=== PATIENT | female | born 1945 | race Caucasian/White ===

== ENCOUNTER 2019-12-12 10:08 | Observation (INO) | payer OTHER, MEDICARE ==
[~2019-12-12] VITALS: Ht 170.2 cm; Wt 88.6 kg
[2019-12-12 10:38] LABS: BASOPHILS ABSOLUTE AUTO 0.02 K/mm3 (0.00-0.23); BASOPHILS PERCENT AUTO 0 % (0-2); EOSINOPHILS ABSOLUTE AUTO 0.05 K/mm3 (0.00-0.68); EOSINOPHILS PERCENT AUTO 1 % (0-6); Hematocrit 46.3 % (33.0-51.0); IMMATURE GRAN ABSOLUTE AUTO 0.01 K/mm3 (0.00-0.10); IMMATURE GRAN PERCENT AUTO 0 % (0-1); LYMPHOCYTES ABSOLUTE AUTO 1.74 K/mm3 (0.84-5.20); LYMPHOCYTES PERCENT AUTO 25 % (21-46); MONOCYTES ABSOLUTE AUTO 0.75 K/mm3 (0.16-1.47); MONOCYTES PERCENT AUTO 11 % (4-13); Mean Corpuscular HGB 30.5 pg (26.0-34.0); Mean Corpuscular HGB Conc 32.4 g/dL (31.5-36.5); Mean Corpuscular Volume 94 fL (80-100); Mean Platelet Volume 9.9 fL (9.1-12.4); NEUTROPHILS ABSOLUTE AUTO 4.32 K/mm3 (1.96-9.15); NEUTROPHILS PERCENT AUTO 63 % (41-73); Platelet Count 147 K/mm3 (150-400); RDW Coefficient Variation 13.2 % (11.7-14.2); RDW Standard Deviation 46.1 fL (35.1-46.3); Red Blood Cell Count 4.91 M/mm3 (3.80-5.20); White Blood Cell Count 6.89 K/mm3 (4.00-11.30)
[2019-12-12 10:59] LABS: Alanine Aminotransfer (ALT/SGP 17 U/L (12-78); Albumin/Globulin Ratio 0.7 (0.8-1.8); Alk Phos 81 U/L (50-136); Anion Gap 7 mmol/L (6-16); Aspartate Aminotrans (AST/SGOT 14 U/L (12-37); Bilirubin, Total 0.6 mg/dL (0.1-1.0); Blood Urea Nitrogen 13 mg/dL (8-24); Bun/Creatinine Ratio 13.3 (12.0-20.0); CO2, Blood 27 mmol/L (21-32); Calcium, Blood 8.9 mg/dL (8.5-10.1); Chloride, Blood 108 mmol/L (98-108); Creatinine, Blood 0.98 mg/dL (0.40-1.00); Globulin, Blood 4.3 g/dL (2.2-4.0); Glomerular Filtration Rate 59 (60-); Glucose, Blood 102 mg/dL (70-99); Potassium, Blood 3.6 mmol/L (3.5-5.5); Sodium, Blood 142 mmol/L (136-145); Total Protein, Blood 7.3 g/dL (6.4-8.2)
[2019-12-12 11:00] LABS: Troponin I <0.015 ng/mL (0.000-0.040)
[2019-12-12] MEDS ORDERED: BUPROPION HCL200 M1 PO (18:40)
[2019-12-12] MEDS ORDERED: PANTOPRAZOLE SO40 M2 PO (18:41)
[2019-12-12] MEDS ORDERED: SERT100 PO (18:41)
[2019-12-12] MEDS ORDERED: ETOD400 PO (18:42)
[2019-12-12] MEDS ORDERED: PRAZ2 PO (18:42)
[2019-12-12] MEDS ORDERED: Aspir 8181 MG PO (18:43)
[2019-12-12] MEDS ORDERED: ALBU90OI INH (18:48)
[2019-12-12] MEDS ORDERED: ASMANEX220 MC8 INH (18:49)
[2019-12-13 05:25] LABS: BASOPHILS ABSOLUTE AUTO 0.03 K/mm3 (0.00-0.23); BASOPHILS PERCENT AUTO 1 % (0-2); EOSINOPHILS ABSOLUTE AUTO 0.06 K/mm3 (0.00-0.68); EOSINOPHILS PERCENT AUTO 1 % (0-6); Hematocrit 41.3 % (33.0-51.0); Hemoglobin 13.3 g/dL (11.5-16.0); IMMATURE GRAN ABSOLUTE AUTO 0.02 K/mm3 (0.00-0.10); IMMATURE GRAN PERCENT AUTO 0 % (0-1); LYMPHOCYTES PERCENT AUTO 28 % (21-46); MONOCYTES ABSOLUTE AUTO 0.67 K/mm3 (0.16-1.47); MONOCYTES PERCENT AUTO 11 % (4-13); Mean Corpuscular HGB 30.6 pg (26.0-34.0); Mean Corpuscular HGB Conc 32.2 g/dL (31.5-36.5); Mean Corpuscular Volume 95 fL (80-100); Mean Platelet Volume 10.6 fL (9.1-12.4); NEUTROPHILS ABSOLUTE AUTO 3.54 K/mm3 (1.96-9.15); NEUTROPHILS PERCENT AUTO 59 % (41-73); Platelet Count 131 K/mm3 (150-400); RDW Coefficient Variation 13.2 % (11.7-14.2); RDW Standard Deviation 46.1 fL (35.1-46.3); Red Blood Cell Count 4.35 M/mm3 (3.80-5.20); White Blood Cell Count 6.02 K/mm3 (4.00-11.30)
--- NOTE | 2019-12-13 05:53 | NUR ---
SHIFT SUMMARY: VSS. AFEB. 02 SAT 93-94% ON RA. REPORTS SOB W/EXERTION. SHALLOW RESPS. PAIN IN R CHEST/BACK ONGOING. PT STATES PAIN IS BARELY PERCEPTABLE AT REST, INCREASES W/MOVEMENT. NO COUGHING. STATES SCHEDULED TORADOL EFFECTIVELY MANAGES PAIN AT THIS TIME. NO ACUTE CHANGES OVERNIGHT.
[2019-12-13 05:56] LABS: Albumin, Blood 2.7 g/dL (3.4-5.0); Albumin/Globulin Ratio 0.7 (0.8-1.8); Bilirubin, Total 0.8 mg/dL (0.1-1.0); Bun/Creatinine Ratio 16.7 (12.0-20.0); Calcium, Blood 8.8 mg/dL (8.5-10.1); Creatinine, Blood 1.02 mg/dL (0.40-1.00); Globulin, Blood 3.9 g/dL (2.2-4.0); Magnesium, Blood 2.4 mg/dL (1.6-2.4); Potassium, Blood 3.3 mmol/L (3.5-5.5); Thyroid Stimulating Hormone 1.84 uIU/mL (0.360-4.800); Total Protein, Blood 6.6 g/dL (6.4-8.2)
[2019-12-13] MEDS ORDERED: Norco 5-325 Ta1 EACH PO (14:57)
[2019-12-13] MEDS ORDERED: XARELTO15 MG PO (15:00)
--- NOTE | 2019-12-13 16:02 | NUR ---
PATIENT D/C'D TO HOME WITH . RX MEDICATIONS S[facility]. PATIENT GIVEN FIRST DOSE OF XARELTO BEFORE DC AND MEDICATED WITH A NORCO FOR PAIN. DC INSTRUCTIONS AND EDUCATION DISCUSSED WITH PATIENT AND COPY PROVIDED. HARD SCRIPT FOR NORCO GIVEN TO PATIENT. PATIENT DENIES ANY FURTHER QUESTIONS OR CONCERNS.
== END 2019-12-13 15:22 | disposition home or self-care (01) ==
LOC: ER 10:08 → MEDS 10:09
PROVIDERS: Physician Assistant; ADMIT Internal Medicine
DX: R07.81 Pleurodynia (principal); D68.2 Hereditary deficiency of other clotting factors; Z86.711 Personal history of pulmonary embolism
CPT/HCPCS: 36415; 71046; 78580; 80053; 83735; 84443; 84484; 85025; 85379; 85651; 93005; 93010; 93970; 96372; 96374; 96376; 99285-25; A9270-GY; A9540; G0378; J1650; J1885

== ENCOUNTER 2022-11-24 18:18 | Emergency (ER) | payer OTHER ==
[~2022-11-24] VITALS: Ht 152.4 cm; Wt 92.1 kg
[~2022-11-24 18:18] MED LIST: ALBU90OI INH; ASMANEX220 MC8 INH; Aspir 8181 MG PO; BUPROPION HCL200 M1 PO; ETOD400 PO; Norco 5-325 Ta1 EACH PO; PANTOPRAZOLE SO40 M2 PO; PRAZ2 PO; SERT100 PO; XARELTO15 MG PO
[2022-11-24 18:46] VITALS: BP 167/81
== END 2022-11-24 20:25 | disposition home or self-care (01) ==
LOC: ER 18:18
DX: S61.217A Laceration without foreign body of left little finger without damage to nail, initial encounter (principal); Z23 Encounter for immunization; W26.0XXA Contact with knife, initial encounter; Y93.89 Activity, other specified; Z91.030 Bee allergy status; Z88.8 Allergy status to other drugs, medicaments and biological substances; Z91.048 Other nonmedicinal substance allergy status; Z79.82 Long term (current) use of aspirin; Z79.51 Long term (current) use of inhaled steroids; Z79.1 Long term (current) use of non-steroidal anti-inflammatories (NSAID); Z79.01 Long term (current) use of anticoagulants
CPT/HCPCS: 12001; 90471; 90714; 99282-25

== ENCOUNTER 2024-01-17 10:05 | Inpatient (IN) | payer OTHER ==
[~2024-01-17] VITALS: Ht 152.4 cm; Wt 90.1 kg
[2024-01-17] VITALS (9 sets, daily range): BP systolic 128–141; BP diastolic 81–97
[~2024-01-17 10:05] MED LIST changes: +TIZA4 PO
[2024-01-17] MEDS ORDERED: XARELTO20 MG PO (10:35)
[2024-01-17] MEDS ORDERED: ALEN70 PO (10:37)
[2024-01-17] MEDS ORDERED: GABA100 PO (10:38)
[2024-01-17] MEDS ORDERED: FAMO20 PO (10:38)
[2024-01-17 10:39] LABS: BASOPHILS ABSOLUTE AUTO 0.03 K/mm3 (0.00-0.23); BASOPHILS PERCENT AUTO 0 % (0-2); EOSINOPHILS ABSOLUTE AUTO 0.03 K/mm3 (0.00-0.68); EOSINOPHILS PERCENT AUTO 0 % (0-6); Hematocrit 39.8 % (33.0-51.0); Hemoglobin 13.5 g/dL (11.5-16.0); IMMATURE GRAN ABSOLUTE AUTO 0.03 K/mm3 (0.00-0.10); IMMATURE GRAN PERCENT AUTO 0 % (0-1); LYMPHOCYTES PERCENT AUTO 28 % (21-46); MONOCYTES ABSOLUTE AUTO 0.56 K/mm3 (0.16-1.47); MONOCYTES PERCENT AUTO 7 % (4-13); Mean Corpuscular HGB 31.4 pg (26.0-34.0); Mean Corpuscular HGB Conc 33.9 g/dL (31.5-36.5); Mean Corpuscular Volume 93 fL (80-100); Mean Platelet Volume 10.5 fL (9.1-12.4); NEUTROPHILS PERCENT AUTO 63 % (41-73); Platelet Count 169 K/mm3 (150-400); RDW Coefficient Variation 12.6 % (11.7-14.2); RDW Standard Deviation 42.7 fL (35.1-46.3); White Blood Cell Count 7.75 K/mm3 (4.00-11.30)
[2024-01-17 11:04] LABS: Albumin, Blood 3.3 g/dL (3.4-5.0); Bilirubin, Total 0.5 mg/dL (0.1-1.0); Bun/Creatinine Ratio 19.3 (12.0-20.0); Calcium, Blood 8.8 mg/dL (8.5-10.1); Creatinine, Blood 0.88 mg/dL (0.40-1.00); Globulin, Blood 3.4 g/dL (2.2-4.0); Potassium, Blood 3.8 mmol/L (3.5-5.5); Total Protein, Blood 6.7 g/dL (6.4-8.2)
[2024-01-17] MEDS ORDERED: Nitroglycerin 2 MG/20 ML BTL ONE (11:35)
[2024-01-17] MEDS ORDERED: NiCARdipine HCL 1,000 MCG/5 ML SYR ONE (11:35)
[2024-01-17] MEDS ORDERED: Heparin Sodium 5000 Units/ML 1ML MDV IV ONE (11:35)
[2024-01-17] MEDS ORDERED: NS 250 ML IV ONE ×2 (11:36→12:10)
[2024-01-17] MEDS ORDERED: NS 2,000 ML IV ONE (11:36)
[2024-01-17] MEDS ORDERED: Heparin Sodium 1000 Units/ML 10ML MDV ONE (11:37)
[2024-01-17] MEDS ORDERED: FentaNYL Citrate 50 MCG/ML 2 ML Injection ONE (11:41)
[2024-01-17] MEDS ORDERED: Midazolam HCl 1MG / ML 2ML Vial ONE (11:42)
[2024-01-17] MEDS ORDERED: Phenylephrine HCl 100 MCG/ML-NS 10MLSYR (1MG/10ML) ONE (11:43)
[2024-01-17] MEDS ORDERED: Tirofiban HCL Monohydrate 3.75 MG/15 ML Vial ONE (11:43)
[2024-01-17] MEDS ORDERED: Atropine Sulfate 0.1 MG/ML 10ML SYR ONE (11:43)
[2024-01-17] MEDS ORDERED: MethylPREDNISolone Sod Succ 125 MG Vial IV ONE (11:45)
[2024-01-17] MEDS ORDERED: DiphenhydrAMINE HCl 50 MG/ML 1ML Vial IV ONE (11:45)
[2024-01-17] MEDS ORDERED: Famotidine 10 MG/ML 2ML Vial IV ONE (11:45)
[2024-01-17] MEDS ORDERED: Clopidogrel Bisulfate 300 MG Cap ONE (11:47)
[2024-01-17] MEDS ORDERED: EpiNEPhrine 1 MG/1 ML 1ML Vial ONE (12:08)
[2024-01-17] MEDS ORDERED: NS 1,000 ML IV SCH (13:15)
[2024-01-17] MEDS ORDERED: Acetaminophen 325 MG TABLET PO PRN ×2 (13:20→14:55)
[2024-01-17] MEDS ORDERED: Metoprolol Succinate 25 MG TABCR PO SCH (13:20)
[2024-01-17] MEDS ORDERED: Empagliflozin 10 MG TAB PO SCH (13:20)
[2024-01-17] MEDS ORDERED: Losartan Potassium 50 MG Tab PO SCH (13:25)
[2024-01-17] MEDS ORDERED: Vitamin D1000 UNI1 PO (13:43)
[2024-01-17] MEDS ORDERED: FLU VACC TS2024-25(6MOS UP)/PF 45 MCG/0.5 ML SYRINGE IM SCH (14:55)
[2024-01-17] MEDS ORDERED: Heparin Sodium,Porcine 5,000 UNIT/0.5 ML SDV SC ONE (16:31)
[2024-01-17] MEDS ORDERED: Albuterol 2.5 MG/3 ML VIAL INH PRN (16:35)
[2024-01-17] MEDS ORDERED: Alendronate Sodium 70 MG Tablet PO SCH (16:50)
--- NOTE | 2024-01-17 17:03 | NUR ---
PCU ADMIT PT REPORTS ORIGINALLY GOING TO [facility] W/ CHEST PAIN THEN BEING SENT TO THE ER & THEN THE [facility]. PT BROUGHT TO [facility]U-[id number] FROM THE [facility] @ APPROX 1300. PT A&O X4. VSS. MONITOR SHOWING NSR. SPO2 88-91% ON RA UPON ARRIVAL TO UNIT. 2L NC APPLIED. PT THEN SOB W/ GETTING UP TO BSC, REQUIRING INCREASE TO 4L NC FOR SPO2 > 92% & PT W/ AUDIBLE WHEEZING. MD FERRELL W/ ORDERS FOR PT HOME MEDICATIONS INCLUDING HOME ALBUTEROL INHALER, SEE ORDER. RT TO RM FOR BREATHING TREATMENT. PT W/ R RADIAL ACCESS SITE. TRB IN PLACE, NOW DEFLATED, WILL REMOVE AFTER 1HR SINCE LAST AIR REMOVAL. ACCESS SITE W/ NOTED BRUISING, NO BLEEDING, NO HEMATOMA. ARM BOARD IN PLACE. NS GTT INFUSING PER EMAR.
[2024-01-17] MEDS ORDERED: Albuterol HFA200 ACT/6.7 GM INH INH PRN (17:15)
[2024-01-17] MEDS ORDERED: Prazosin HCl2 MG PO (20:29)
[2024-01-17] MEDS ORDERED: Prazosin HCl 1 MG Cap PO SCH (21:00)
[2024-01-17] MEDS ORDERED: Atorvastatin 10 MG Tab PO SCH (21:00)
[2024-01-17] MEDS ORDERED: Gabapentin 100 MG Cap PO SCH (21:00)
[2024-01-18 00:23] VITALS: BP 110/72
[2024-01-18 02:57] VITALS: BP 127/81
[2024-01-18 03:38] LABS: BASOPHILS ABSOLUTE AUTO 0.01 K/mm3 (0.00-0.23); BASOPHILS PERCENT AUTO 0 % (0-2); EOSINOPHILS PERCENT AUTO 0 % (0-6); Hematocrit 40.2 % (33.0-51.0); Hemoglobin 13.8 g/dL (11.5-16.0); IMMATURE GRAN ABSOLUTE AUTO 0.03 K/mm3 (0.00-0.10); IMMATURE GRAN PERCENT AUTO 0 % (0-1); LYMPHOCYTES ABSOLUTE AUTO 0.86 K/mm3 (0.84-5.20); LYMPHOCYTES PERCENT AUTO 11 % (21-46); MONOCYTES ABSOLUTE AUTO 0.16 K/mm3 (0.16-1.47); MONOCYTES PERCENT AUTO 2 % (4-13); Mean Corpuscular HGB 31.7 pg (26.0-34.0); Mean Corpuscular HGB Conc 34.3 g/dL (31.5-36.5); Mean Corpuscular Volume 92 fL (80-100); Mean Platelet Volume 10.7 fL (9.1-12.4); NEUTROPHILS PERCENT AUTO 87 % (41-73); Platelet Count 159 K/mm3 (150-400); RDW Coefficient Variation 12.7 % (11.7-14.2); RDW Standard Deviation 43.1 fL (35.1-46.3); Red Blood Cell Count 4.35 M/mm3 (3.80-5.20); White Blood Cell Count 7.86 K/mm3 (4.00-11.30)
[2024-01-18 04:00] LABS: Anion Gap 10 mmol/L (3-11); Blood Urea Nitrogen 19 mg/dL (8-24); Bun/Creatinine Ratio 20.5 (12.0-20.0); CHOL/HDL RATIO 2.9; CO2, Blood 22 mmol/L (21-32); Calcium, Blood 8.8 mg/dL (8.5-10.1); Chloride, Blood 112 mmol/L (98-108); Cholesterol 227 mg/dL (50-200); Creatinine, Blood 0.93 mg/dL (0.40-1.00); Glomerular Filtration Rate 64 (60-); Glucose, Blood 154 mg/dL (70-99); HDL Cholesterol 78 mg/dL (>39); LDL/HDL RATIO 1.7; Low Density Lipoprotein Chol 135 mg/dL (0-110); Potassium, Blood 3.7 mmol/L (3.5-5.5); Sodium, Blood 140 mmol/L (136-145); Triglycerides 69 mg/dL (30-160); Very Low Density Lipoprot Chol 13 mg/dL (6-32)
--- NOTE | 2024-01-18 06:01 | NUR ---
SHIFT SUMMARY PATIENT ALERT, ORIENTED x4. ABLE TO MAKE NEEDS KNOWN TO STAFF. BP STABLE. PATIENT TITRATED FROM 3L NC TO RA, SPO2 >90%. DENIED CHEST PAIN DURING THE NIGHT. RIGHT RADIAL SITE RECOVERED, NO HEMATOMA, SWELLING OR OOZING NOTED. ARM BOARD IN PLACE. PATIENT AMBULATING INTO BATHROOM MINIMAL ASSIST, ADEQUATE OUTPUT. NO OTHER CHANGES DURING THE NIGHT, WILL REPORT TO DAY SHIFT RN.
[2024-01-18 07:32] VITALS: BP 120/75
[2024-01-18] MEDS ORDERED: Cholecalciferol 1000 Unit Tablet (=25MCG) PO SCH (09:00)
[2024-01-18] MEDS ORDERED: Famotidine 20 MG Tab PO SCH (09:00)
[2024-01-18] MEDS ORDERED: Rivaroxaban 10 MG Tab PO SCH (09:00)
[2024-01-18 12:01] VITALS: BP 112/74
[2024-01-18] MEDS ORDERED: ATOR10 PO (12:09)
[2024-01-18] MEDS ORDERED: JARDIANCE10 MG PO (12:10)
[2024-01-18] MEDS ORDERED: LOSA25 PO (12:10)
[2024-01-18] MEDS ORDERED: METO25ER PO (12:11)
--- NOTE | 2024-01-18 13:35 | NUR ---
PT DISCHARGED TO HOME WITH . BELONGINGS WERE COLLECTED AND SENT HOME WITH PT. THIS RN WENT OVER DISCHARGE INSTRUCTIONS AND MEDS WITH PT AND ADDRESSED ANY QUESTIONS OR CONCERNS. PT DENIES ANY FUTHER QUESTIONS OR CONCERNS.
== END 2024-01-18 13:59 | disposition home or self-care (01) | DRG 287 ==
LOC: ER 10:05 → ICUE 11:38 → PCU 11:38
PROVIDERS: Internal Medicine Cardiovascular Disease; Student in an Organized Health Care Education/Training Program; ADMIT Internal Medicine
PROC: 4A023N7 Measurement of Cardiac Sampling and Pressure, Left Heart, Percutaneous Approach (ICD-10-PCS; principal; 2024-01-17)
PROC: B2111ZZ Fluoroscopy of Multiple Coronary Arteries using Low Osmolar Contrast (ICD-10-PCS; 2024-01-17)
PROC: B2151ZZ Fluoroscopy of Left Heart using Low Osmolar Contrast (ICD-10-PCS; 2024-01-17)
DX: I51.81 Takotsubo syndrome (principal); D68.51 Activated protein C resistance; D64.9 Anemia, unspecified; G89.29 Other chronic pain; M54.9 Dorsalgia, unspecified; K21.9 Gastro-esophageal reflux disease without esophagitis; M06.9 Rheumatoid arthritis, unspecified; E78.2 Mixed hyperlipidemia; R09.02 Hypoxemia; Z96.652 Presence of left artificial knee joint; Z86.711 Personal history of pulmonary embolism; Z91.038 Other insect allergy status; Z88.8 Allergy status to other drugs, medicaments and biological substances; Z79.01 Long term (current) use of anticoagulants; Z79.899 Other long term (current) drug therapy
CPT/HCPCS: 36415; 71046; 76937; 80048; 80053; 80061; 84484; 85025; 85347; 93005; 93010; 93458; 94640; 94664; 94762; 96374; 96375; 99152; 99153; 99285-25; A9270; C1769; C1887; C1894; C8929; J0171; J0461; J1200; J1644; J2250; J2371; J2919; J3010; J3246; J7030; J7050; Q9957; Q9967

== ENCOUNTER 2024-02-22 12:06 | Emergency (ER) | payer OTHER ==
[~2024-02-22] VITALS: Ht 152.4 cm; Wt 89.8 kg
[~2024-02-22 12:06] MED LIST changes: +ALEN70 PO; +ATOR10 PO; +FAMO20 PO; +GABA100 PO; +JARDIANCE10 MG PO; +LOSA25 PO; +METO25ER PO; +Prazosin HCl2 MG PO; +Vitamin D1000 UNI1 PO; +XARELTO20 MG PO
[2024-02-22 12:59] LABS: BASOPHILS ABSOLUTE AUTO 0.04 K/mm3 (0.00-0.23); BASOPHILS PERCENT AUTO 1 % (0-2); EOSINOPHILS ABSOLUTE AUTO 0.07 K/mm3 (0.00-0.68); EOSINOPHILS PERCENT AUTO 2 % (0-6); Hematocrit 44.2 % (33.0-51.0); Hemoglobin 14.8 g/dL (11.5-16.0); IMMATURE GRAN PERCENT AUTO 0 % (0-1); LYMPHOCYTES ABSOLUTE AUTO 1.72 K/mm3 (0.84-5.20); LYMPHOCYTES PERCENT AUTO 38 % (21-46); MONOCYTES ABSOLUTE AUTO 0.32 K/mm3 (0.16-1.47); MONOCYTES PERCENT AUTO 7 % (4-13); Mean Corpuscular HGB 31.1 pg (26.0-34.0); Mean Corpuscular HGB Conc 33.5 g/dL (31.5-36.5); Mean Corpuscular Volume 93 fL (80-100); Mean Platelet Volume 10.8 fL (9.1-12.4); NEUTROPHILS ABSOLUTE AUTO 2.33 K/mm3 (1.96-9.15); NEUTROPHILS PERCENT AUTO 52 % (41-73); Platelet Count 151 K/mm3 (150-400); RDW Coefficient Variation 12.2 % (11.7-14.2); RDW Standard Deviation 42.2 fL (35.1-46.3); Red Blood Cell Count 4.76 M/mm3 (3.80-5.20); White Blood Cell Count 4.48 K/mm3 (4.00-11.30)
[2024-02-22 13:33] LABS: Albumin, Blood 3.5 g/dL (3.4-5.0); Bilirubin, Total 0.5 mg/dL (0.1-1.0); Bun/Creatinine Ratio 17.5 (12.0-20.0); Calcium, Blood 9.2 mg/dL (8.5-10.1); Creatinine, Blood 0.91 mg/dL (0.40-1.00); Globulin, Blood 3.4 g/dL (2.2-4.0); Potassium, Blood 3.7 mmol/L (3.5-5.5); Total Protein, Blood 6.9 g/dL (6.4-8.2)
[2024-02-22] MEDS ORDERED: DiphenhydrAMINE HCl 50 MG/ML 1ML Vial IV ONE (17:45)
[2024-02-22] MEDS ORDERED: Famotidine 10 MG/ML 2ML Vial IV ONE (17:45)
[2024-02-22] MEDS ORDERED: MethylPREDNISolone Sod Succ 125 MG Vial IV ONE (17:45)
[2024-02-22 19:15] VITALS: BP 152/66
[2024-02-22] MEDS ORDERED: JARDIANCE10 MG PO (19:33)
[2024-02-22] MEDS ORDERED: LOSA50 PO (19:33)
[2024-02-22] MEDS ORDERED: XARELTO20 MG PO (19:33)
[2024-02-22] MEDS ORDERED: METO25ER PO (19:33)
== END 2024-02-22 19:53 | disposition home or self-care (01) ==
LOC: ER 12:06
PROVIDERS: Physician Assistant
DX: R07.89 Other chest pain (principal); K44.9 Diaphragmatic hernia without obstruction or gangrene; R42 Dizziness and giddiness; F43.10 Post-traumatic stress disorder, unspecified; K21.9 Gastro-esophageal reflux disease without esophagitis; E78.5 Hyperlipidemia, unspecified; M19.90 Unspecified osteoarthritis, unspecified site; Z79.899 Other long term (current) drug therapy; Z91.041 Radiographic dye allergy status; Z91.030 Bee allergy status
CPT/HCPCS: 71046; 71260; 80053; 84484; 85025; 93005; 93010; 96374-59; 96375-59; 99284-25; J1200; J2919; Q9967

== ENCOUNTER 2024-09-01 09:56 | Day surgery (SDC) | payer OTHER ==
[~2024-09-01] VITALS: Ht 154.5 cm; Wt 86.2 kg
[~2024-09-01 09:56] MED LIST changes: -ATOR10 PO; +ATOR20 PO; +CALCIUM 500 MG1 EAC7 PO; +LOSA50 PO; +Lactated Ringer's 1,000 ML IV SCH; +Methocarbamol500 MG PO; +PANT40 PO; +VITAMIN E90 MG PO
[2024-09-01] MEDS ORDERED: propofoL 40 ML IV ONE (10:21)
[2024-09-01 11:13] VITALS: BP 176/82
--- NOTE | 2024-09-01 11:16 | NUR ---
History, Chart, Medications and Allergies reviewed before start of procedure. Patient States Post-Procedure ride home has been arranged.
[2024-09-01 12:56] LABS: BASOPHILS ABSOLUTE AUTO 0.04 K/mm3 (0.00-0.23); BASOPHILS PERCENT AUTO 1 % (0-2); EOSINOPHILS ABSOLUTE AUTO 0.03 K/mm3 (0.00-0.68); EOSINOPHILS PERCENT AUTO 1 % (0-6); Hematocrit 40.6 % (33.0-51.0); Hemoglobin 13.6 g/dL (11.5-16.0); IMMATURE GRAN ABSOLUTE AUTO 0.01 K/mm3 (0.00-0.10); IMMATURE GRAN PERCENT AUTO 0 % (0-1); LYMPHOCYTES ABSOLUTE AUTO 1.75 K/mm3 (0.84-5.20); LYMPHOCYTES PERCENT AUTO 32 % (21-46); MONOCYTES ABSOLUTE AUTO 0.41 K/mm3 (0.16-1.47); MONOCYTES PERCENT AUTO 8 % (4-13); Mean Corpuscular HGB 31.1 pg (26.0-34.0); Mean Corpuscular HGB Conc 33.5 g/dL (31.5-36.5); Mean Corpuscular Volume 93 fL (80-100); Mean Platelet Volume 11.3 fL (9.1-12.4); NEUTROPHILS ABSOLUTE AUTO 3.22 K/mm3 (1.96-9.15); NEUTROPHILS PERCENT AUTO 59 % (41-73); Platelet Count 160 K/mm3 (150-400); RDW Coefficient Variation 12.4 % (11.7-14.2); RDW Standard Deviation 42.7 fL (35.1-46.3); Red Blood Cell Count 4.38 M/mm3 (3.80-5.20); White Blood Cell Count 5.46 K/mm3 (4.00-11.30)
[2024-09-01] MEDS ORDERED: Lidocaine HCl 4% 5 ML SDA ONE (13:07)
--- NOTE | 2024-09-01 13:12 | NUR ---
09/01/24 1312 Darrell Hernandez MONITOR INTACT WITH CONTINUOUS PULSE OXIMETRY, CONTINUOUS END TITAL CO2, 3-LEAD EKG AND INTERMITTENT BLOOD PRESSURE.
[2024-09-01 13:28] LABS: Albumin, Blood 3.2 g/dL (3.4-5.0); Bilirubin, Total 0.4 mg/dL (0.1-1.0); Creatinine, Blood 0.85 mg/dL (0.40-1.00); Globulin, Blood 3.2 g/dL (2.2-4.0); Potassium, Blood 3.4 mmol/L (3.5-5.5); Total Protein, Blood 6.4 g/dL (6.4-8.2)
[2024-09-01 13:51] VITALS: BP 129/67
[2024-09-01 14:12] VITALS: BP 132/80
--- NOTE | 2024-09-01 14:12 | NUR ---
Discharge instructions reviewed with patient. Patient verbalizes understanding. Copy given to patient to take home. Patient States Post-Procedure ride home has been arranged. Discharged via wheelchair to private car for ride home.
[2024-09-04] MEDS ORDERED: Methocarbamol500 MG PO (09:54)
== END 2024-09-01 23:00 | disposition home or self-care (01) ==
LOC: ORSCMMR 09:56 → ORD 11:30 → ORSCMMR 11:30 → ORSCSDS 09-24 14:00
PROVIDERS: Surgery
PROC: 0DB98ZX Excision of Duodenum, Via Natural or Artificial Opening Endoscopic, Diagnostic (ICD-10-PCS; principal; 2024-09-01 11:30)
PROC: 0DB78ZX Excision of Stomach, Pylorus, Via Natural or Artificial Opening Endoscopic, Diagnostic (ICD-10-PCS; principal; 2024-09-01 11:30)
DX: K21.9 Gastro-esophageal reflux disease without esophagitis (principal); K44.9 Diaphragmatic hernia without obstruction or gangrene; R10.13 Epigastric pain; K25.9 Gastric ulcer, unspecified as acute or chronic, without hemorrhage or perforation; K29.80 Duodenitis without bleeding; D68.51 Activated protein C resistance; Z86.711 Personal history of pulmonary embolism; Z79.01 Long term (current) use of anticoagulants; Z79.899 Other long term (current) drug therapy
CPT/HCPCS: 80053; 85025; 88305; 88342; 93005; 93010; J2003; J2704; J7120

== ENCOUNTER 2025-02-23 06:35 | Day surgery (SDC) | payer OTHER ==
[~2025-02-23] VITALS: Ht 154.9 cm; Wt 80.9 kg
[~2025-02-23 06:35] MED LIST changes: -Lactated Ringer's 1,000 ML IV SCH; +NS 500 ML IV ONE; +OXYC5 PO
[2025-02-23] MEDS ORDERED: SERT50 PO (07:01)
[2025-02-23] MEDS ORDERED: Robaxin750 MG (07:01)
[2025-02-23] MEDS ORDERED: NS 500 ML IV ONE (07:10)
--- NOTE | 2025-02-23 07:21 | NUR ---
02/23/25 0721 Ronna Martinez TIME OUT PERFORMED AT BEDSIDE WITH DR BEAULIEU AT 0717 IMMEDIATELY PRIOR TO INJECTION BY DR BEAULIEU OF 7ML OF SOLUTION CONSISTING OF 9ML 1% LIDOCAINE WITH EPI [id number] AND 1ML 8.4% SODIUM BICARBONATE INTO R HAND. PT TOLERATED PROCEDURE WELL.
[2025-02-23] MEDS ORDERED: CeFAZolin Sodium 2,000 MG VIAL ONE (07:32)
[2025-02-23] MEDS ORDERED: Ondansetron HCl 2 MG / ML 2ML Vial ONE (07:37)
[2025-02-23] MEDS ORDERED: FentaNYL Citrate 50 MCG/ML 2 ML Injection ONE (07:37)
[2025-02-23] MEDS ORDERED: Dexamethasone Sod Phos 10 MG/ML 1ML VIAL ONE (07:37)
[2025-02-23 08:04] VITALS: BP 120/54
== END 2025-02-23 08:41 | disposition home or self-care (01) ==
LOC: ORSCSDS 06:35
PROVIDERS: Orthopaedic Surgery
PROC: 01N54ZZ Release Median Nerve, Percutaneous Endoscopic Approach (ICD-10-PCS; principal; 2025-02-23 08:00)
DX: G56.01 Carpal tunnel syndrome, right upper limb (principal); D68.51 Activated protein C resistance; Z86.711 Personal history of pulmonary embolism; I51.81 Takotsubo syndrome; J45.909 Unspecified asthma, uncomplicated; K21.9 Gastro-esophageal reflux disease without esophagitis; E66.9 Obesity, unspecified; Z68.33 Body mass index [BMI] 33.0-33.9, adult; Z79.01 Long term (current) use of anticoagulants; Z79.899 Other long term (current) drug therapy
CPT/HCPCS: J0690; J1100; J2405; J3010; J7040